=== PATIENT | male | born 1970 ===

== ENCOUNTER 2020-11-14 12:09 | Emergency (ER) | payer OTHER, SELFPAY ==
--- NOTE | ~2020-11-14 | XR_ITS ---
EXAMINATION: Mild left knee osteoarthritis. 2. Moderate-sized left knee joint effusion. DATE: 11/14/2020 13:03 INDICATION: Left knee injury and swelling. TECHNIQUE: 4 views of left knee were obtained. COMPARISON: Left knee radiographs 12/26/2016 FINDINGS: Bone alignment is normal. No fracture. There is mild tricompartmental osteoarthritis charac terized by tiny marginal osteophytes. No joint space narrowing. There is a moderate-sized knee joint effusion. IMPRESSION: 1. Mild left knee osteoarthritis. 2. Moderate-sized left knee joint effusion. Reviewed, dictated and finalized at location A.
[2020-11-14 12:21] VITALS: BP 151/86; PULSE 85; RESP 16; TEMP 36.9; O2SAT 96
--- NOTE | 2020-11-14 13:45 | ED.LOWEXIN ---
HPI - Extremity Injury (Lower) General Chief Complaint: Extremity Injury, Lower Stated Complaint: L knee pain, fall Time Seen by Provider: 11/14/20 12:33 Source: RN notes reviewed History of Present Illness HPI Narrative: Patient presents emergency room from home for left knee pain. Patient states proximally 1 week ago he was stepping over something in the garage when he twisted his knee states he had pain in that knee since that time with some mild swelling he denies falling on the knee or any direct trauma he denies any other injury denies any pain to the hip or ankle Related Data Allergies Allergy/AdvReac Type Severity Reaction Status Date / Time No Known Allergies Allergy Unverified 12/03/12 22:59 Review of Systems Review of Systems: Gen.: Denies fevers or chills Musculoskeletal: See HPI Neuro: Denies numbness, tingling, weakness Skin: Denies rash Endo: Denies DM PMFSH Past Medical History Medical History (Updated 11/14/20 @ 13:48 by Esteban Rahman DO) Patient denies significant medical history Social History Social History Smoking status: Never smoker Alcohol intake: never Exam Narrative: APPEARANCE: No acute distress, nontoxic, resting in bed Eyes: EOMI HEENT: Normocephalic, atraumatic, RESPIRATORY: No respiratory distress MUSCULOSKELETAl: Tender to palpation of the left anterior and lateral knee mild swelling with no ecchymosis full flexion-extension of the knee with pain with flexion of the knee no tenderness of the ankle or hip neurovascular intact NEURO: Awake and alert. Following commands, speech normal, no focal deficits SKIN:: Warm, dry. Normal Color no rash or lesions Course Course Emergency Course: Discussed with patient results of workup and diagnosis. Discussed need for follow-up with primary care, proper use of medication, and reasons to return to the emergency department. Patient understands and agrees to current treatment plan Vital Signs Vital signs: Vital Signs Temperature 98.4 F 11/14/20 12:21 Pulse Rate 85 11/14/20 12:21 Respiratory Rate 16 11/14/20 12:21 Blood Pressure 151/86 H 11/14/20 12:21 Pulse Oximetry 96 11/14/20 12:21 Temperature 98.4 F 11/14/20 12:21 Pulse Rate 85 11/14/20 12:21 Respiratory Rate 16 11/14/20 12:21 Blood Pressure 151/86 H 11/14/20 12:21 Pulse Oximetry 96 11/14/20 12:21 MDM - Extremity Injury (Lower) Imaging Data Radiologist's impression: ITS Impressions Knee X-Ray 11/14/20 13:14 IMPRESSION: 1. Mild left knee osteoarthritis. 2. Moderate-sized left knee joint effusion. Discharge Plan Discharge Clinical Impression: Left knee sprain Patient Disposition: Home, Self-Care Condition: Stable Instructions: Antibiotic Form, Knee Sprain (ED) Additional Instructions: Return for increasing pain numbness or tingling of the extremities or any other symptoms of concern Prescriptions: New ibuprofen [IBU] 600 mg tablet 600 mg PO Q6H PRN (Reason: pain) Qty: 20 RF: 0 Follow-up/Referrals: PHYSICIAN,WEB PAGE DESIGNER [Primary Care Provider] - Tai Garcia MD [Physician] - (Follow-up in 1 to 2 days for further orthopedic treatment and evaluation) Stand Alone Forms: Work/School Release IP Time of Disposition: 13:49
[2020-11-14 14:14] VITALS: BP 143/99; PULSE 77; RESP 14; O2SAT 99
== END 2020-11-14 14:15 | disposition home or self-care (01) ==
PROVIDERS: Emergency Provider Emergency Medicine
DX: S83.92XA Sprain of unspecified site of left knee, initial encounter (principal); X50.0XXA Overexertion from strenuous movement or load, initial encounter
CPT/HCPCS: 73564; 99283